=== PATIENT | female | born 1940 | race Caucasian/White ===

== ENCOUNTER → 2016-10-31 | Outpatient (REF) ==
[2016-10-31 13:20] LABS: ALBUMIN 3.8 g/dL (3.4-5.0); ANION GAP 17.9 MEQ/L (3-15); CALCULATED IONIZED CALCIUM 4.1 mg/dL (3.8-4.6); TOTAL PROTEIN 7.1 g/dL (6.4-8.5)
== END ==
LOC: CLAB.BLUES 12:49
PROVIDERS: ATTEND Family Medicine
DX: M54.5 Low back pain (principal); I77.9 Disorder of arteries and arterioles, unspecified
CPT/HCPCS: 80053; 80061

== ENCOUNTER → 2016-11-05 | Outpatient (REF) ==
[2016-11-05 14:49] LABS: MEAN CORPUSCULAR HGB CONC 32.8 g/dL (31.0-37.0); MEAN PLATELET VOLUME 9.7 FL (6.0-9.5); WHITE BLOOD COUNT 6.45 10^3uL (4.0-11.0)
== END ==
LOC: CLAB.BLUES 14:15
PROVIDERS: ATTEND Family Medicine
DX: M54.5 Low back pain (principal)
CPT/HCPCS: 85027